=== PATIENT | male | born 1965 | race Caucasian/White ===

== ENCOUNTER 2017-01-30 07:38 | Day surgery (SDC) | payer OTHER ==
[2017-01-27 08:21] VITALS: BMI 34.2
[~2017-01-30 07:38] MED LIST: LACTATED RINGERS 1,000 ML IV SCH
[2017-01-30 08:01] VITALS: RESP 16; TEMP 98.1
[2017-01-30] MEDS ORDERED: LIDOCAINE 1% 20 ML VIAL (10MG/ML) FOR IV START INTRADERMA ONE (08:01)
[2017-01-30] MEDS ORDERED: MIDAZOLAM 2 MG/2 ML VIAL ONE (08:38)
[2017-01-30] MEDS ORDERED: PROPOFOL 10 MG/ML 20 ML VIAL IV ONE (08:38)
[2017-01-30] MEDS ORDERED: fentaNYL (PF) 50 MCG/ML 2 ML AMP ONE (08:38)
--- NOTE | 2017-01-30 09:18 | P.PCN ---
Date of Procedure: 01/30/17 Procedure(s) Performed: Procedure: Colonoscopy and polypectomy. Preoperative diagnosis: Screening for neoplasia, patient has history of polyps. Postoperative diagnosis: 1. Three small polyps snared but no large polyps or cancer. 2. Sigmoid diverticulosis with no evidence of acute diverticulitis or strictures. Preparation: HalfLytely prep. Sedation: Was provided by anesthesia. Brief clinical history: The patient is a 51-year-old male who I have evaluated in the office and scheduled for this examination for screening for neoplasia because of history of polyps and since he has plans to donate one of his kidneys to a relative. He has no abdominal complaints, bleeding or anemia. His last colonoscopy was in 2002. Procedure: With the patient on his left lateral decubitus position and after informed consent and adequate sedation, the perianal area was inspected and it did not show any fissures or fistulas. There were no masses felt on digital rectal examination. The Olympus CFQ 160L video colonoscope was then inserted in the rectum in the usual fashion and advanced to the cecum. The mucosa appeared healthy. There were 3 small polyps noted, one in the distal sigmoid and 2 in the rectum and those were all snared and retrieved by suction. There were no large polyps or cancer. Few diverticular orifices were seen scattered in the sigmoid but I saw no evidence of acute diverticulitis or strictures. I retroflexed endoscope in the rectum before the endoscope was withdrawn. The patient tolerated the procedure well. Plan: The patient was reassured. Will await pathology results. Discussed dietary measures. I anticipate scheduling a repeat colonoscopy in 5 years.
[2017-01-30 09:47] VITALS: BP 130/88; PULSE 68
== END 2017-01-30 10:06 | disposition home or self-care (01) ==
LOC: ORWHC2ENDO 07:38
DX: Z12.11 Encounter for screening for malignant neoplasm of colon (principal); D12.8 Benign neoplasm of rectum; K63.5 Polyp of colon; K57.30 Diverticulosis of large intestine without perforation or abscess without bleeding; Z86.010 Personal history of colon polyps; E78.5 Hyperlipidemia, unspecified; Z79.899 Other long term (current) drug therapy
CPT/HCPCS: 88305; 45385; J2250; J3010; J2704

== ENCOUNTER 2022-11-08 18:24 | Emergency (ER) | payer OTHER ==
--- NOTE | 2022-11-08 19:21 | ED ---
General Adult HPI - General Stated complaint: finger injury Time Seen by Provider: 11/08/22 19:20 - History of Present Illness Initial comments: Patient is a 57-year-old male presenting with chief complaint of finger injury. Patient injured the left index finger after smashing it with a wrench. His last tetanus shot was 9 years ago. He admits to some numbness and tingling. He has full range of motion. He reports that he tore a chunk of skin off of the finger. - Related Data Home Medications Medication Instructions Recorded Confirmed Simvastatin [Zocor] 1 tab PO HS 10/17/15 01/30/17 Allergies Allergy/AdvReac Type Severity Reaction Status Date / Time No Known Allergies Allergy Verified 01/27/17 08:13 Review of Systems ROS Statement: Those systems with pertinent positive or pertinent negative responses have been documented in the HPI. ROS Other: All systems not noted in ROS Statement are negative. Past Medical History Past Medical History: Hyperlipidemia Additional Past Medical History / Comment(s): planning to donate kidney,steroids in December 2016,hx hemorrhoid History of Any Multi-Drug Resistant Organisms: None Reported Past Surgical History: Orthopedic Surgery Additional Past Surgical History / Comment(s): elbow repair,toe tendon repair,hemorrhoidectomy Past Anesthesia/Blood Transfusion Reactions: No Reported Reaction Additional Past Anesthesia/Blood Transfusion Reaction / Comment(s): no prior complication of blood transfusion Past Psychological History: No Psychological Hx Reported Past Alcohol Use History: Occasional Past Drug Use History: None Reported - Past Family History Mother Family Medical History: Cancer Additional Family Medical History / Comment(s): breast ,melanoma. mother's brother melanoma Father Family Medical History: Renal Disease Additional Family Medical History / Comment(s): father's sisters and brother had colon CA General Exam Limitations: no limitations General appearance: alert, in no apparent distress Head exam: Present: atraumatic, normocephalic, normal inspection Eye exam: Present: normal appearance Neck exam: Present: normal inspection, full ROM Neurological exam: Present: alert, oriented X3, CN II-XII intact Psychiatric exam: Present: normal affect, normal mood Expanded Type of lesion: Present: laceration (Laceration to the left forefinger) Course Vital Signs 11/08/22 11/08/22 19:20 22:06 Temperature 97 F L 97.9 F Pulse Rate 100 71 Respiratory 20 18 Rate Blood Pressure 178/94 142/71 O2 Sat by Pulse 96 98 Oximetry Medical Decision Making - Medical Decision Making Was pt. sent in by a medical professional or institution (MOHAMUD Kong, BELLMAN DRIVER, urgent care, hospital, or skilled nursing...) When possible be specific @ -No Did you speak to anyone other than the patient for history (EMS, parent, family, police, friend...)? What history was obtained from this source @ -No Did you review nursing and triage notes (agree or disagree)? Why? @ -I reviewed and agree with nursing and triage notes Were old charts reviewed (outside hosp., previous admission, EMS record, old EKG, old radiological studies, urgent care reports/EKG's, skilled nursing records)? Report findings @ -No old charts were reviewed Differential Diagnosis (chest pain, altered mental status, abdominal pain women, abdominal pain men, vaginal bleeding, weakness, fever, dyspnea, syncope, headache, dizziness, GI bleed, back pain, seizure, CVA, palpatations, mental health)? @ -not applicable EKG interpreted by me (3pts min.). @ -As above X-rays interpreted by me (1pt min.). @ -None done CT interpreted by me (1pt min.). @ -None done U/S interpreted by me (1pt. min.). @ -None done What testing was considered but not performed or refused? (CT, X-rays, U/S, labs)? Why? @ -None What meds were considered but not given or refused? Why? @ -None Did you discuss the management of the patient with other professionals (professionals i.e. MOHAMUD Kong, BELLMAN DRIVER, lab, RT, psych nurse, social media sr strategy manager, structural test engineer, teacher, parole or probation officer, case monitor)? Give summary @ -No Was smoking cessation discussed for >3mins.? @ -No Was critical care preformed (if so, how long)? @ -No Were there social determinants of health that impacted care today? How? (Homelessness, low income, unemployed, alcoholism, drug addiction, tra nsportation, low edu. Level, literacy, decrease access to med. care, [place] [facility], rehab)? @ -No Was there de-escalation of care discussed even if they declined (Discuss DNR or withdrawal of care, Hospice)? DNR status @ -No What co-morbidities impacted this encounter? (DM, HTN, Smoking, COPD, CAD, Cancer, CVA, ARF, Chemo, Hep., AIDS, mental health diagnosis, sleep apnea, morbid obesity)? @ -None Was patient admitted / discharged? Hospital course, mention meds given and route, prescriptions, significant lab abnormalities, going to OR and other pertinent info. @ -Patient is a 57-year-old male presenting with chief complaint of laceration to the left index finger. Patient injured the finger with a wrench today. On physical examination laceration is noted, there is some bleeding from the area. Let solution is placed and tetanus is updated. X-ray shows no fracture or foreign body. Wound is cleansed and repaired by Jessica SPENCE. Patient educated on wound care. Follow-up with PCP. Report back to ER with any new or worsening symptoms. Discussed return parameters and answered all questions. Patient conveyed verbal understanding and agreed to the plan. I discussed this case in detail with my attending Dr. Rm Undiagnosed new problem with uncertain prognosis? @ -No Drug Therapy requiring intensive monitoring for toxicity (Heparin, Nitro, Insulin, Cardizem)? @ -No Were any procedures done? @ -No Diagnosis/symptom? @ -Laceration Acute, or Chronic, or Acute on Chronic? @ -Acute Uncomplicated (without systemic symptoms) or Complicated (systemic symptoms)? @ -Uncomplicated Side effects of treatment? @ -No Exacerbation, Progression, or Severe Exacerbation? @ -No Poses a threat to life or bodily function? How? (Chest pain, [place], [place], pneumonia, PE, COPD, DKA, ARF, appy, cholecystitis, CVA, Diverticulitis, Homicidal, Suicidal, threat to staff... and all critical care pts) @ -No Disposition Clinical Impression: Laceration Disposition: HOME SELF-CARE Condition: Good Instructions (If sedation given, give patient instructions): Care For Your Stitches (ED), Finger Laceration (ED) Additional Instructions: Follow-up with PCP. Report back to ER with any new or worsening symptoms. Keep the wound clean, dry, covered. Avoid submerging the wound such as washing dishes, gallops, or swelling. He may wash gently with soap and water. Monitor for signs of infection, including but not limited to redness, swelling, warmth, discharge, fever, chills. Sutures may be removed in 10-14 days. Is patient prescribed a controlled substance at d/c from ED?: No Referrals: None,Stated [REFERRING] - 1-2 days Time of Disposition: 22:01
[2022-11-08] MEDS ORDERED: DIPH,PERTUS(ACELL)TETVAC-LF 0.5 ML VIAL IM ONE (19:28)
[2022-11-08] MEDS: LIDOCAINE/EPINEPHR/TETRACAINE 5 ML BOTTLE TOPICAL ONE ×2 (19:38→20:38)
--- NOTE | 2022-11-08 19:56 | XR ---
EXAMINATION TYPE: XR finger LT DATE OF EXAM: 11/08/2022 COMPARISON: NONE HISTORY: Laceration TECHNIQUE: 3 views FINDINGS: Index finger appears intact. I see no sign of a foreign body. There is mild spurring at the DIP joint. IMPRESSION: No fracture seen. No evidence of foreign body.
[2022-11-08] MEDS ORDERED: LIDOCAINE 1% INJ 10MG/ML (30 ML VIAL-PF) SQ ONE (20:23)
[2022-11-08 22:06] VITALS: BP 142/71; PULSE 71; RESP 18; TEMP 97.9
== END 2022-11-08 22:06 | disposition home or self-care (01) ==
LOC: EC 18:24
DX: S61.211A Laceration without foreign body of left index finger without damage to nail, initial encounter (principal); E78.5 Hyperlipidemia, unspecified; Z79.899 Other long term (current) drug therapy; Z23 Encounter for immunization; W23.1XXA Caught, crushed, jammed, or pinched between stationary objects, initial encounter
CPT/HCPCS: 73140; 90715; 99283; 90471; J2001

== ENCOUNTER 2024-02-07 09:56 | Day surgery (SDC) | payer OTHER ==
[2024-02-05 16:50] VITALS: BMI 35.4
--- NOTE | 2024-02-07 08:39 | P.GSHP ---
History of Present Illness H&P Date: 02/07/24 CHIEF COMPLAINT: Colon screen HISTORY OF PRESENT ILLNESS: The patient is a 58-year-old male who presents for colon screen. Lower endoscopy was offered for further evaluation and management. PAST MEDICAL HISTORY: Please see list. PAST SURGICAL HISTORY: Please see list. MEDICATIONS: Please see list. ALLERGIES: Please see list. SOCIAL HISTORY: No illicit drug use FAMILY HISTORY: No reports of Crohn disease or ulcerative colitis. REVIEW OF ORGAN SYSTEMS: CONSTITUTIONAL: No reports of fevers or chills. PHYSICAL EXAM: VITAL SIGNS: Stable GENERAL: Well-developed pleasant in no acute distress. HEENT: No scleral icterus. Extraocular movements grossly intact. Moist buccal mucosa. NECK: Supple without lymphadenopathy. CHEST: Unlabored respirations. Equal bilateral excursions. CARDIOVASCULAR: Regular rate and rhythm. Distal 2+ pulses. ABDOMEN: Soft, nontender, nondistended. MUSCULOSKELETAL: No clubbing, cyanosis, or edema. ASSESSMENT: 1. Colon screen. PLAN: 1. Recommend proceeding with a lower endoscopy Past Medical History Past Medical History: Hyperlipidemia, Hypertension Additional Past Medical History / Comment(s): planning to donate kidney,steroids in December 2016,hx hemorrhoid History of Any Multi-Drug Resistant Organisms: None Reported Past Surgical History: Orthopedic Surgery Additional Past Surgical History / Comment(s): Elbow repair, toe tendon repair, colonoscopy, hemorrhoidectomy. Past Anesthesia/Blood Transfusion Reactions: No Reported Reaction Additional Past Anesthesia/Blood Transfusion Reaction / Comment(s): No prior complication of blood transfusion - had due to Jaundice at . Smoking Status: Never smoker - Past Family History Mother Family Medical History: Cancer Additional Family Medical History / Comment(s): Breast cancer, melanoma. Mother's brother had melanoma. Father Family Medical History: Renal Disease Additional Family Medical History / Comment(s): Father's sisters and brother had colon cancer. Medications and Allergies Home Medications Medication Instructions Recorded Confirmed Type Simvastatin [Zocor] 40 mg PO DAILY 10/17/15 02/05/24 History amLODIPine [Norvasc] 5 mg PO QAM 02/05/24 02/05/24 History Allergies Allergy/AdvReac Type Severity Reaction Status Date / Time No Known Allergies Allergy Verified 02/05/24 16:04
[2024-02-07] MEDS: LACTATED RINGERS 1,000 ML IV SCH (10:42)
[2024-02-07 11:17] VITALS: TEMP 98.9
[2024-02-07] MEDS ORDERED: PROPOFOL 10 MG/ML 20 ML VIAL IV ONE (11:35)
--- NOTE | 2024-02-07 11:53 | P.PCN ---
Date of Procedure: 02/07/24 Description of Procedure: PREOPERATIVE DIAGNOSIS: Personal history of colon polyps Family history malignant colon polyps Colonoscopy screening POSTOPERATIVE DIAGNOSIS: Tubular adenoma cecum Pandiverticulosis Sigmoid diverticulosis Internal hemorrhoids, grade 2 OPERATION: Colonoscopy to the ileocecal valve and appendiceal orifice, cecum Colonoscopy with hot snare polypectomy SURGEON: Mónica Gamble MD. ANESTHESIA: MAC. INDICATIONS: The patient is an 66-year-old male who presents family history of malignant colon polyps and personal history of colon polyps. Last colonoscopy 5 years. Benefits and risks were described and informed consent was obtained. DESCRIPTION OF PROCEDURE: The patient had undergone SuFLAVE prep. The patient had been brought into the operating room and laid in the left lateral decubitus position. After adequate intravenous sedation, the rectum was examined with 2% lidocaine jelly. The prostate was unremarkable. External hemorrhoids were encountered. The rectal tone was within normal limits. No lesions were palpated in the rectal vault. An Olympus colonoscope was advanced until the cecum, ileocecal valve and appendiceal orifice were clearly viewed. The prep was excellent. Pandiverticulosis with sigmoid diverticulosis was encountered. Colonic polyps w ere found and removed. No evidence of focal colitis was found. Retroflexion of the scope demonstrated grade 2 internal hemorrhoids without active bleeding or inflammation. The colon was desufflated. The patient had tolerated the procedure well. Withdrawal time was over 6 minutes. FINDINGS: Aronchick preparation quality scale 1 (1-5) Internal hemorrhoids, grade 2 External hemorrhoids, grade 2 No arteriovenous malformations. Sigmoid diverticulosis with pandiverticulosis Removal of 1 polyps: - Snare polypectomy at cecum, 5 mm tubulovillous adenoma No focal colitis. RECOMMENDATIONS: Given severity of tubular adenomas, recommend repeat colonoscopy 3 years, 2026 Plan - Discharge Summary Discharge Rx Participant: Yes New Discharge Prescriptions: Continue Simvastatin [Zocor] 40 mg PO DAILY amLODIPine [Norvasc] 5 mg PO QAM Discharge Medication List Simvastatin [Zocor] 40 mg PO DAILY 10/17/15 [History] amLODIPine [Norvasc] 5 mg PO QAM 02/05/24 [History] Follow up Appointment(s)/Referral(s): Mónica Gamble MD [STAFF PHYSICIAN] - As Needed Patient Instructions/Handouts: Diverticulosis Diet (GEN), Diverticulosis (DC), Colorectal Polyps (GEN) Activity/Diet/Wound Care/Special Instructions: Repeat colonoscopy in 3 years, 2026 Discharge Disposition: HOME SELF-CARE
[2024-02-07 12:43] VITALS: BP 128/85; PULSE 80; RESP 16
== END 2024-02-07 12:43 | disposition home or self-care (01) ==
LOC: ORWHC2ENDO 09:56
PROVIDERS: ATTEND Surgery Plastic and Reconstructive Surgery
DX: Z12.11 Encounter for screening for malignant neoplasm of colon (principal); D12.0 Benign neoplasm of cecum; K64.1 Second degree hemorrhoids; K57.30 Diverticulosis of large intestine without perforation or abscess without bleeding; E78.5 Hyperlipidemia, unspecified; I10 Essential (primary) hypertension; Z80.0 Family history of malignant neoplasm of digestive organs; Z79.899 Other long term (current) drug therapy; Z86.010 Personal history of colon polyps
CPT/HCPCS: 88305; 45385; J2704